=== PATIENT | male | born 1955 | race Caucasian/White ===

== ENCOUNTER → 2017-01-19 | Outpatient (CLI) | payer MEDICARE ==
[2017-01-19 08:19] LABS: Blood Urea Nitrogen 23 mg/dL (9-20); Non-African American GFR(MDRD) >60 (>60 ml/min/1.73 sqM)
--- NOTE | 2017-01-19 09:28 | CT ---
EXAMINATION TYPE: CT angio neck DATE OF EXAM: 01/19/2017 HISTORY: Occlusion and Stenosis of Carotid Artery COMPARISON: NONE CT DLP: 341.3 mGycm. Automated Exposure Control for Dose Reduction was Utilized. TECHNIQUE: CTA scan of the neck is performed with IV Contrast, patient injected with 65 mL of Omnipa que 350, axial images are obtained, coronal and sagittal reformatted images are reviewed. Three-D rec onstructed images are created on an independent workstation and reviewed. FINDINGS: There are emphysematous changes within the lungs. There is some shotty aortopulmonary window adenopathy. Visualized intracranial structures are unremarkable. Visualized portions of the paranasal sinuses and mastoids are clear. There is straightening of the normal cervical lordosis. Vertebral body height and alignment are maint ained. Atlantoaxial relationships are normal. There is disc space loss and hypertrophic spondylosis at C4-5 and C5-6. The thyroid gland enhances homogeneously. There is some shotty cervical adenopathy. The major salivar y glands are normal. The parapharyngeal, oropharyngeal and laryngeal soft tissues are normal. There is moderate atheromatous calcification of the left carotid bulb. There is no significant calcif ication on the right. There is approximately 55% by diameter stenosis of the proximal right ICA. Ther e is approximately a 75% by diameter stenosis involving the proximal left ICA. IMPRESSION: 1. 75% BY DIAMETER STENOSIS OF THE PROXIMAL LEFT ICA. 2. 55% BY DIAMETER STENOSIS OF THE PROXIMAL RIGHT ICA. 3. EMPHYSEMATOUS CHANGE WITHIN THE LUNGS. 4. DEGENERATIVE CHANGE WITHIN THE CERVICAL SPINE.
== END | disposition home or self-care (01) ==
LOC: RADCTMAIN 07:47
PROVIDERS: ATTEND Thoracic Surgery (Cardiothoracic Vascular Surgery)
DX: I65.23 Occlusion and stenosis of bilateral carotid arteries (principal); M47.812 Spondylosis without myelopathy or radiculopathy, cervical region
CPT/HCPCS: 82565; 84520; 70498; 36415; Q9967

== ENCOUNTER → 2018-11-14 | Outpatient (CLI) | payer MEDICARE ==
--- NOTE | 2018-11-14 10:00 | CT ---
EXAMINATION TYPE: CT chest wo con DATE OF EXAM: 11/14/2018 COMPARISON: NONE HISTORY: Shortness of breath CT DLP: 426 mGycm. Automated Exposure Control for Dose Reduction was Utilized. TECHNIQUE: CT scan of the thorax is performed without IV contrast. FINDINGS: LUNGS: The lungs are grossly clear, there is no concerning parenchymal mass or nodule identified. T here is no pleural effusion or pneumothorax seen. The tracheobronchial tree is patent. MEDIASTINUM: Lack of IV contrast is noted to limit evaluation for mediastinal and especially hilar ad enopathy. There are no definitive greater than 1 cm hilar or mediastinal lymph nodes. No cardiomega ly or pericardial effusion is seen. Some coronary artery calcification is present which is noted china er for underlying coronary artery disease. OTHER: There is moderate calcified plaque in the aortic arch. Bovine type arch is seen which is sarah l variant. IMPRESSION: No significant acute or chronic pulmonary process.
== END | disposition home or self-care (01) ==
LOC: RADCTMAIN 08:17
PROVIDERS: ATTEND Family Medicine
DX: R06.02 Shortness of breath (principal)
CPT/HCPCS: 71250

== ENCOUNTER 2018-12-05 06:48 | Day surgery (SDC) | payer MEDICARE ==
[2018-12-03 12:05] VITALS: BMI 25.1
[~2018-12-05 06:48] MED LIST: LACTATED RINGERS 1,000 ML IV SCH
[2018-12-05 07:23] VITALS: RESP 16; TEMP 96.9
[2018-12-05 07:25] LABS: Glucose,Whole Blood 89 mg/dL (75-99)
[2018-12-05] MEDS ORDERED: fentaNYL (PF) 50 MCG/ML 2 ML AMP ONE (07:33)
[2018-12-05] MEDS ORDERED: PROPOFOL 10 MG/ML 20 ML VIAL IV ONE (07:33)
[2018-12-05] MEDS ORDERED: MIDAZOLAM 2 MG/2 ML VIAL ONE (07:33)
[2018-12-05] MEDS ORDERED: GLYCOPYRROLATE 0.2 MG/ML 2 ML VIAL ONE (07:33)
--- NOTE | 2018-12-05 08:01 | P.PCN ---
Date of Procedure: 12/05/18 Procedure(s) Performed: Brief history: Patient is a pleasant 63-year-old white male, scheduled for an elective upper endoscopy as well as colonoscopy as a part of evaluation of abdominal pain, intermittent nausea vomiting and change in bowel habits for the last few months duration. He also has progressive weight loss of 15 pounds in the last 6 months. Procedure performed: Esophagogastroduodenoscopy with biopsy and snare polypectomy Colonoscopy with snare polypectomy Preoperative diagnosis: Abdominal pain/nausea and vomiting Change in bowel habits and progressive weight loss Anesthesia: MAC Procedure: After informed consent was obtained from the patient was brought into the endoscopy unit and IV sedation was administered by anesthesia under continuous monitoring. Initially upper endoscopy was done. The Olympus GF 160 video endoscope was inserted inserted into the mouth and esophagus intubated without any difficulty and was gradually advanced into the stomach and duodenum and carefully examined. The bulb and second part of the duodenum appeared normal. There was a 5 mm polyp in the second part of the duodenum that was removed by snare polypectomy. Also biopsies were done from the duodenum to rule out celiac disease. The scope was then withdrawn into the stomach adequately insufflated with air and upon careful examination the antrum a had mild gastritis and biopsies were done from this area. The body, cardia and fundus appeared normal. The scope was then withdrawn into the esophagus. The GE junction was located at 40 cm to the incisors. It appeared regular with no erythema erosions or ulcerations. Rest of the esophagus appeared normal. Patient tolerated the procedure well. At this time the patient continued to remain sedation. Initial digital rectal examination was normal. Olympus CF 160 video colonoscope was then inserted into the rectum and gradually advanced to the cecum without any difficulty. Careful examination was performed as the scope was gradually being withdrawn. The prep was excellent. The cecum, ascending colon, transverse colon, appeared normal. In the proximal descending colon there was a 1 cm broad-based polyp that was removed by snare polypectomy. In the distal sigmoid colon there was another 5 and admitted polyp that was removed by snare polypectomy. Rest of the descending colon, sigmoid colon and rectum appeared normal. Retroflexion was performed in the rectum and no lesions were noted. Patient tolerated the procedure well. Impression: 1. Upper endoscopy revealed 5-6 mm duodenal polyp, mild antral gastritis. 2. Colonoscopy revealed 1 cm proximal descending colon polyp and 5 mm distal sigmoid colon polyp, status post polypectomy. Recommendations: Findings of this examination were discussed with the patient as well as his family. He was advised to follow with the biopsy results. If the biopsy reveals adenoma, he can have a repeat colonoscopy in 3 years.
[2018-12-05 08:34] VITALS: PULSE 69
[2018-12-05 08:53] VITALS: BP 104/70
== END 2018-12-05 09:16 | disposition home or self-care (01) ==
LOC: ORWHC2ENDO 06:48
PROVIDERS: ATTEND Internal Medicine Gastroenterology
DX: K29.50 Unspecified chronic gastritis without bleeding (principal); D12.4 Benign neoplasm of descending colon; D12.5 Benign neoplasm of sigmoid colon; K31.7 Polyp of stomach and duodenum; I10 Essential (primary) hypertension; E78.5 Hyperlipidemia, unspecified; E11.9 Type 2 diabetes mellitus without complications; F17.200 Nicotine dependence, unspecified, uncomplicated; F39 Unspecified mood [affective] disorder; Z79.84 Long term (current) use of oral hypoglycemic drugs; Z79.899 Other long term (current) drug therapy; Z79.82 Long term (current) use of aspirin
CPT/HCPCS: 88305; 45385; 43239; 43251; J2250; J3010; J2704

== ENCOUNTER 2019-08-15 08:53 | Emergency (ER) | payer MEDICARE ==
[2019-08-15 09:03] VITALS: RESP 18
[2019-08-15] MEDS ORDERED: KETOROLAC 60 MG/2 ML VIAL IM STA (09:40)
[2019-08-15] MEDS ORDERED: ORPHENADRINE 30 MG/ML 2 ML VIAL IM STA (09:40)
[2019-08-15] MEDS ORDERED: HYDROcodone/APAP 7.5-325MG 1 EACH TAB PO ONE (09:40)
--- NOTE | 2019-08-15 09:47 | ED ---
Back Pain HPI - General Chief Complaint: Back Pain/Injury Stated Complaint: BACK PAIN Time Seen by Provider: 08/15/19 09:24 Source: patient, RN notes reviewed Limitations: no limitations - History of Present Illness Initial Comments: This a 63-year-old male presents emergency Department chief complaint low back pain. Patient states this started 5 days ago after clearing snow off of his vehicle. Patient states that he was twisting and pushing snow. Patient states that he felt a pull in his back and he's had persistent pain. He denies any bowel, bladder incontinence or retention. Denies any saddle anesthesias or lower extremity paresthesias has no current abdominal pain. He has tried some [id number] medications with no relief. Patient states she's had a history of back pain similar to this. Patient is able to family but does admit that pain is worse with movement better at rest. - Related Data Home Medications Medication Instructions Recorded Confirmed Atorvastatin [Lipitor] 10 mg PO HS 02/03/14 12/05/18 Divalproex [Depakote] 1,500 mg PO 02/03/14 12/05/18 FLUoxetine HCL [PROzac] 40 mg PO QAM 02/03/14 12/05/18 LORazepam [Ativan] 2 mg PO HS 02/03/14 12/05/18 Lisinopril [Prinivil] 10 mg PO QAM 02/03/14 12/05/18 Omeprazole [PriLOSEC] 20 mg PO 1700 02/03/14 12/05/18 Primidone [Mysoline] 50 mg PO HS 02/03/14 12/05/18 QUEtiapine [SEROquel] 400 mg PO HS 02/03/14 12/05/18 Aspirin 81 mg PO DAILY 12/03/18 12/05/18 Baclofen [Lioresal] 20 mg PO TID PRN 12/03/18 12/05/18 Multivit-Min/FA/Lycopen/Lutein 1 each PO DAILY 12/03/18 12/05/18 [Centrum Silver Men Tablet] QUEtiapine [SEROquel] 150 mg PO QAM 12/03/18 12/05/18 Temazepam [Restoril] 30 mg PO HS 12/03/18 12/05/18 metFORMIN HCL [Glucophage] 500 mg PO 1700 12/03/18 12/05/18 traZODone HCL 300 mg PO HS 12/03/18 12/05/18 Previous Rx's Medication Instructions Recorded Cyclobenzaprine [Flexeril] 10 mg PO TID PRN #15 tab 08/15/19 Hydrocodone/Acetaminophen [[place] 1 tab PO Q6HR PRN #12 tab 08/15/19 5-325] Ibuprofen [Motrin] 600 mg PO Q8HR PRN #30 tab 08/15/19 Allergies Allergy/AdvReac Type Severity Reaction Status Date / Time No Known Allergies Allergy Verified 08/15/19 09:00 Review of Systems ROS Statement: Those systems with pertinent positive or pertinent negative responses have been documented in the HPI. ROS Other: All systems not noted in ROS Statement are negative. Past Medical History Past Medical History: CVA/TIA, Diabetes Mellitus, Hyperlipidemia, Hypertension Additional Past Medical History / Comment(s): unexpected wt loss,hx TIA-2007: DJD, chronic back pain History of Any Multi-Drug Resistant Organisms: None Reported Additional Past Surgical History / Comment(s): surgery for undescended testicle Past Anesthesia/Blood Transfusion Reactions: No Reported Reaction Additional Past Anesthesia/Blood Transfusion Reaction / Comment(s): no hx blood transfusion Past Psychological History: Anxiety, Bipolar, Depression Smoking Status: Current some day smoker - Past Family History Mother Family Medical History: No Reported History General Exam Limitations: no limitations General appearance: alert, in no apparent distress Head exam: Present: atraumatic, normocephalic, normal inspection Neck exam: Present: normal inspection, full ROM. Absent: tenderness, meningismus, lymphadenopathy Respiratory exam: Present: normal lung sounds bilaterally. Absent: respiratory distress, wheezes, rales, rhonchi, stridor Cardiovascular Exam: Present: regular rate, normal rhythm, normal heart sounds. Absent: systolic murmur, diastolic murmur, rubs, gallop, clicks GI/Abdominal exam: Present: soft, normal bowel sounds. Absent: distended, tenderness, guarding, rebound, rigid Extremities exam: Present: other (Lower extremities neurovascular intact equal color equal warmth full strength pain with range of motion.) Back exam: Present: full ROM, tenderness (Severe lumbar tenderness), muscle spasm, paraspinal tenderness, vertebral tenderness. Absent: CVA tenderness (R), CVA tenderness (L) Neurological exam: Present: alert, oriented X3, CN II-XII intact, reflexes normal. Absent: motor sensory deficit Skin exam: Present: warm, dry, intact, normal color. Absent: rash Course Vital Signs 08/15/19 09:00 Temperature 98.1 F Pulse Rate 97 Respiratory 18 Rate Blood Pressure 91/64 O2 Sat by Pulse 95 Oximetry Medical Decision Making - Medical Decision Making X-ray shows degenerative changes, no acute osseus lesions. Patient's pain is improved after pain medication emergency from it. Patient be discharged in stable condition return parameters were discussed. Disposition Clinical Impression: Strain of lumbar region Disposition: HOME SELF-CARE Condition: Stable Instructions (If sedation given, give patient instructions): Acute Low Back Pain (ED) Additional Instructions: Please return to the Emergency Department if symptoms worsen or any other concerns. Prescriptions: Cyclobenzaprine [Flexeril] 10 mg PO TID PRN #15 tab PRN Reason: Muscle Spasm Ibuprofen [Motrin] 600 mg PO Q8HR PRN #30 tab PRN Reason: Pain Hydrocodone/Acetaminophen [[place] 5-325] 1 tab PO Q6HR PRN #12 tab PRN Reason: Pain Is patient prescribed a controlled substance at d/c from ED?: Yes When asked, does pt state using other controlled substances?: No If prescribed controlled substance>3 days was MAPS reviewed?: Prescribed <3 Days If opioid is for acute pain is fill amount 7 days or less?: Yes If Rx opioid, was Start Talking consent form obtained?: Yes Referrals: Hang Brannon MD [Primary Care Provider] - 1-2 days Time of Disposition: 10:56
--- NOTE | 2019-08-15 10:49 | XR ---
EXAMINATION TYPE: XR lumbosacral spine min 4V DATE OF EXAM: 08/15/2019 CLINICAL HISTORY: Low back pain. TECHNIQUE: Frontal, lateral, and oblique images of the lumbar spine are obtained. COMPARISON: Prior MRI April 13, 2013. FINDINGS: There are 5 lumbar type vertebral bodies identified. The lumbar spine redemonstrated sati sfactory alignment without evidence of acute fracture or dislocation. Vertebral body heights and disk space heights are within normal limits. The oblique images appear within normal limits. Mild multi level anterior and lateral spurring. The overlying soft tissue appears unremarkable. IMPRESSION: As above.
[2019-08-15 11:23] VITALS: BP 134/67; PULSE 83; TEMP 98
== END 2019-08-15 11:20 | disposition home or self-care (01) ==
LOC: EC 08:53
DX: S39.012A Strain of muscle, fascia and tendon of lower back, initial encounter (principal); E11.9 Type 2 diabetes mellitus without complications; E78.5 Hyperlipidemia, unspecified; I10 Essential (primary) hypertension; F41.9 Anxiety disorder, unspecified; F31.9 Bipolar disorder, unspecified; F17.200 Nicotine dependence, unspecified, uncomplicated; Z79.899 Other long term (current) drug therapy; Z79.82 Long term (current) use of aspirin; Z79.84 Long term (current) use of oral hypoglycemic drugs; Z86.73 Personal history of transient ischemic attack (TIA), and cerebral infarction without residual deficits; X58.XXXA Exposure to other specified factors, initial encounter
CPT/HCPCS: 72110; 99283; 96372 ×2; J2360; J1885

== ENCOUNTER 2022-05-15 09:59 | Emergency (ER) | payer MEDICARE ==
[2022-05-15 10:07] VITALS: TEMP 97.9
[2022-05-15] MEDS ORDERED: ORPHENADRINE 30 MG/ML 2 ML VIAL IM STA (10:35)
[2022-05-15] MEDS ORDERED: KETOROLAC 15 MG/ML 1 ML VIAL IM STA (10:35)
--- NOTE | 2022-05-15 11:03 | XR ---
EXAMINATION TYPE: XR lumbosacral spine min 4V DATE OF EXAM: 05/15/2022 COMPARISON: 08/15/2019 HISTORY: Pain TECHNIQUE: 5 view lumbar spine FINDINGS: There are 5 lumbar-type vertebral bodies. Pedicles are intact. Disc heights are preserved. Vertebral body heights are preserved. Minimal spondylosis is present. Mild facet changes are present in the lower lumbar spine. IMPRESSION: 1. Mild facet changes lower lumbar spine. 2. No acute osseous abnormality
--- NOTE | 2022-05-15 11:42 | ED ---
Back Pain HPI - General Chief Complaint: Back Pain/Injury Stated Complaint: Back Pain Time Seen by Provider: 05/15/22 10:07 Source: patient, RN notes reviewed Limitations: no limitations - History of Present Illness Initial Comments: 66-year-old male presents emergency Department chief complaint of low back pain. Patient states has been bothersome for last 4 days. Patient states that he has degenerative disc disease states he was his back pain. Patient states that he said new x-rays. He denies any bowel, bladder incontinence or retention of saddle anesthesias no dysuria no hematuria no fevers or chills no flank pain. Patient's pain is under at rest worse with movement - Related Data Home Medications Medication Instructions Recorded Confirmed Atorvastatin [Lipitor] 10 mg PO HS 02/03/14 12/05/18 Divalproex [Depakote] 1,500 mg PO HS 02/03/14 12/05/18 FLUoxetine HCL [PROzac] 40 mg PO QAM 02/03/14 12/05/18 LORazepam [Ativan] 2 mg PO HS 02/03/14 12/05/18 Omeprazole [PriLOSEC] 20 mg PO 1700 02/03/14 12/05/18 Primidone [Mysoline] 50 mg PO HS 02/03/14 12/05/18 QUEtiapine [SEROquel] 400 mg PO HS 02/03/14 12/05/18 lisinopriL [Prinivil] 10 mg PO QAM 02/03/14 12/05/18 Aspirin 81 mg PO DAILY 12/03/18 12/05/18 Baclofen [Lioresal] 20 mg PO TID PRN 12/03/18 12/05/18 Multivit-Min/FA/Lycopen/Lutein 1 each PO DAILY 12/03/18 12/05/18 [Centrum Silver Men Tablet] QUEtiapine [SEROquel] 150 mg PO QAM 12/03/18 12/05/18 Temazepam [Restoril] 30 mg PO HS 12/03/18 12/05/18 metFORMIN HCL [Glucophage] 500 mg PO 1700 12/03/18 12/05/18 traZODone HCL 300 mg PO HS 12/03/18 12/05/18 Previous Rx's Medication Instructions Recorded Cyclobenzaprine [Flexeril] 10 mg PO TID PRN #15 tab 08/15/19 Hydrocodone/Acetaminophen [[place] 1 tab PO Q6HR PRN #12 tab 08/15/19 5-325] Ibuprofen [Motrin] 600 mg PO Q8HR PRN #30 tab 08/15/19 Cyclobenzaprine [Flexeril] 10 mg PO TID PRN #15 tab 05/15/22 Ibuprofen [Motrin] 600 mg PO Q8HR PRN #20 tab 05/15/22 Allergies Allergy/AdvReac Type Severity Reaction Status Date / Time No Known Allergies Allergy Verified 05/15/22 10:06 Review of Systems ROS Statement: Those systems with pertinent positive or pertinent negative responses have been documented in the HPI. ROS Other: All systems not noted in ROS Statement are negative. Past Medical History Past Medical History: CVA/TIA, Diabetes Mellitus, Hyperlipidemia, Hypertension Additional Past Medical History / Comment(s): unexpected wt loss,hx TIA-2007: DJD, chronic back pain History of Any Multi-Drug Resistant Organisms: None Reported Additional Past Surgical History / Comment(s): surgery for undescended testicle Past Anesthesia/Blood Transfusion Reactions: No Reported Reaction Additional Past Anesthesia/Blood Transfusion Reaction / Comment(s): no hx blood transfusion Past Psychological History: Anxiety, Bipolar, Depression Smoking Status: Current every day smoker Past Alcohol Use History: Occasional Past Drug Use History: Marijuana - Past Family History Mother Family Medical History: No Reported History General Exam Limitations: no limitations General appearance: alert, in no apparent distress Neck exam: Present: normal inspection, full ROM. Absent: tenderness, meningismus, lymphadenopathy Respiratory exam: Present: normal lung sounds bilaterally. Absent: respiratory distress, wheezes, rales, rhonchi, stridor Cardiovascular Exam: Present: regular rate, normal rhythm, normal heart sounds. Absent: systolic murmur, diastolic murmur, rubs, gallop, clicks GI/Abdominal exam: Present: soft, normal bowel sounds. Absent: distended, tenderness, guarding, rebound, rigid Back exam: Present: normal inspection, full ROM (With discomfort), tenderness, paraspinal tenderness, other (Lower extremity strength equal bilaterally, equal clinical warmth). Absent: CVA tenderness (R), CVA tenderness (L), vertebral tenderness Neurological exam: Present: alert, oriented X3, CN II-XII intact, reflexes normal. Absent: motor sensory deficit Course Vital Signs 05/15/22 10:01 Temperature 97.9 F Pulse Rate 106 H Respiratory 18 Rate Blood Pressure 100/67 O2 Sat by Pulse 96 Oximetry Medical Decision Making - Medical Decision Making X-ray shows degenerative changes, no significant findings otherwise patient does have strained his lumbar back, is alert like symptoms patient discharge she did have improvement after Toradol, Norflex. Disposition Clinical Impression: Strain of lumbar region Disposition: HOME SELF-CARE Condition: Stable Instructions (If sedation given, give patient instructions): Acute Low Back Pain (ED) Additional Instructions: Please return to the Emergency Department if symptoms worsen or any other concerns. Prescriptions: Cyclobenzaprine [Flexeril] 10 mg PO TID PRN #15 tab PRN Reason: Muscle Spasm Ibuprofen [Motrin] 600 mg PO Q8HR PRN #20 tab PRN Reason: Pain Is patient prescribed a controlled substance at d/c from ED?: No Referrals: John Leyva DO [Primary Care Provider] - 1-2 days
[2022-05-15] MEDS ORDERED: ACET/COD 300 MG/30 MG STARTER PACK 6 TAB BTL PO STA (12:05)
[2022-05-15 12:50] VITALS: BP 122/68; PULSE 71; RESP 16
== END 2022-05-15 12:50 | disposition home or self-care (01) ==
LOC: EC 09:59
DX: S39.012A Strain of muscle, fascia and tendon of lower back, initial encounter (principal); E11.9 Type 2 diabetes mellitus without complications; E78.5 Hyperlipidemia, unspecified; I10 Essential (primary) hypertension; F17.200 Nicotine dependence, unspecified, uncomplicated; F12.90 Cannabis use, unspecified, uncomplicated; Z79.83 Long term (current) use of bisphosphonates; Z79.82 Long term (current) use of aspirin; Z79.899 Other long term (current) drug therapy; X58.XXXA Exposure to other specified factors, initial encounter
CPT/HCPCS: 72110; 99283; 96372 ×2; J2360; J1885

== ENCOUNTER 2022-12-26 12:14 | Day surgery (SDC) | payer MEDICARE, OTHER ==
[2022-12-21 15:23] VITALS: BMI 22.9
[2022-12-26 12:49] VITALS: TEMP 97
[2022-12-26 13:02] LABS: Glucose,Whole Blood 123 mg/dL (70-110)
[2022-12-26] MEDS ORDERED: PROPOFOL 10 MG/ML 20 ML VIAL IV ONE (13:33)
--- NOTE | 2022-12-26 13:37 | P.GSHP ---
History of Present Illness H&P Date: 12/26/22 Chief Complaint: Positive colon guard test This a 67-year-old male who presents today for colonoscopy. Patient has a positive colon guard test. Patient had a previous colonoscopy with polyp removal in 2019. Past Medical History Past Medical History: CVA/TIA, Diabetes Mellitus, Hyperlipidemia, Hypertension Additional Past Medical History / Comment(s): unexpected wt loss,hx TIA-2008: DJD, chronic back pain Bipolar 1 History of Any Multi-Drug Resistant Organisms: None Reported Additional Past Surgical History / Comment(s): surgery for undescended testicle Past Anesthesia/Blood Transfusion Reactions: No Reported Reaction Additional Past Anesthesia/Blood Transfusion Reaction / Comment(s): no hx blood transfusion Smoking Status: Current every day smoker - Past Family History Mother Family Medical History: No Reported History Medications and Allergies Home Medications Medication Instructions Recorded Confirmed Type Atorvastatin [Lipitor] 10 mg PO 02/03/14 12/26/22 History Divalproex [Depakote] 1,500 mg PO 02/03/14 12/26/22 History Omeprazole [PriLOSEC] 20 mg PO 1700 02/03/14 12/26/22 History Primidone [Mysoline] 50 mg PO 02/03/14 12/26/22 History QUEtiapine [SEROquel] 400 mg PO 02/03/14 12/26/22 History lisinopriL [Prinivil] 10 mg PO [facility] 02/03/14 12/26/22 History Aspirin 81 mg PO DAILY 12/03/18 12/26/22 History QUEtiapine [SEROquel] 150 mg PO [facility] 12/03/18 12/26/22 History Temazepam [Restoril] 30 mg PO 12/03/18 12/26/22 History metFORMIN HCL [Glucophage] 500 mg PO 1700 12/03/18 12/26/22 History traZODone HCL 300 mg PO 12/03/18 12/26/22 History Cyclobenzaprine [Flexeril] 10 mg PO TID PRN #15 tab 05/15/22 12/26/22 Rx Ibuprofen [Motrin] 800 mg PO Q8HR PRN 12/21/22 12/26/22 History Allergies Allergy/AdvReac Type Severity Reaction Status Date / Time No Known Allergies Allergy Verified 12/26/22 12:40 Surgical - Exam Vital Signs Temp Pulse Resp BP Pulse Ox 97.0 F L 102 H 18 99/63 96 12/26/22 12:46 12/26/22 12:46 12/26/22 12:46 12/26/22 12:46 12/26/22 12:46 - General well developed, well nourished, no distress - Eyes PERRL - ENT normal pinna - Neck no masses - Respiratory normal expansion - Cardiovascular Rhythm: regular - Abdomen Abdomen: soft, non tender Results - Labs Abnormal Lab Results - Last 24 Hours (Table) 12/26/22 Range/Units 12:59 POC Glucose (mg/dL) 123 H (70-110) mg/dL Assessment and Plan Assessment: We'll perform colonoscopy
--- NOTE | 2022-12-26 13:50 | P.OP ---
Date of Procedure: 12/26/22 Preoperative Diagnosis: Positive colon guard Postoperative Diagnosis: Normal colonoscopy Procedure(s) Performed: Colonoscopy Anesthesia: MAC Surgeon: Yair Mckeon Pathology: none sent Condition: stable Disposition: PACU Description of Procedure: The patient's placed on the endoscopy table in the lateral position. He received IV sedation. Digital rectal exam performed. This revealed no abnormalities. The prostate was symmetric without nodules. The flexible colonoscope was then placed patient anus and asked throughout the entire colon. The ileocecal valve was visualized. The cecum, ascending and transverse colon appeared normal. The descending and sigmoid colon appeared normal. Scope was then brought back the rectum and this appeared normal. The scope was withdrawn for patient.
[2022-12-26 13:55] VITALS: RESP 16
[2022-12-26 14:09] VITALS: BP 122/81; PULSE 76
== END 2022-12-26 14:30 | disposition home or self-care (01) ==
LOC: ORWHC2ENDO 12:14
PROVIDERS: ATTEND Surgery
DX: R19.5 Other fecal abnormalities (principal); I10 Essential (primary) hypertension; E11.9 Type 2 diabetes mellitus without complications; E78.5 Hyperlipidemia, unspecified; G89.29 Other chronic pain; F17.200 Nicotine dependence, unspecified, uncomplicated; Z79.82 Long term (current) use of aspirin; Z79.899 Other long term (current) drug therapy; Z86.73 Personal history of transient ischemic attack (TIA), and cerebral infarction without residual deficits
CPT/HCPCS: 45378; J2704

== ENCOUNTER → 2023-06-01 | Outpatient (CLI) | payer MEDICARE, OTHER ==
[2023-06-01 16:28] LABS: ALT 15 U/L (10-49); AST 12 U/L (14-35); Albumin 4.6 g/dL (3.8-4.9); Alkaline Phosphatase 45 U/L (41-126); BUN/Creat Ratio 13.22 Ratio (12.00-20.00); Blood Urea Nitrogen 11.9 mg/dL (9.0-27.0); Calcium 9.9 mg/dL (8.7-10.3); Carbon Dioxide 26.1 mmol/L (21.6-31.8); Chloride 101 mmol/L (96-109); Globulin 2.3 g/dL (1.6-3.3); Glucose 125 mg/dL (70-110); Potassium 4.9 mmol/L (3.5-5.5); Sodium 139 mmol/L (135-145); Total Bilirubin <0.2 mg/dL (0.3-1.2); Total Protein 6.9 g/dL (6.2-8.2)
[2023-06-01 16:35] LABS: Basophils # (A) 0.01 X 10*3/uL (0.00-0.10); Basophils % (A) 0.2 %; Eosinophils # (A) 0.05 X 10*3/uL (0.04-0.35); HCT 44.8 % (39.6-50.0); HGB 15.6 g/dL (13.0-17.0); Lymphocytes # (A) 1.97 X 10*3/uL (0.90-5.00); Lymphocytes % (A) 39.5 %; MCH 34.3 pg (27.0-32.0); MCHC 34.8 g/dL (32.0-37.0); MCV 98.5 FL (80.0-97.0); Mean Platelet Volume 9.5 FL (9.5-12.2); Monocytes # (A) 0.46 X 10*3/uL (0.20-1.00); Monocytes % (A) 9.2 %; NRBC Per 100 WBC 0 X 10*3/uL (0.00-0.01); Neutrophils # (A) 2.47 X 10*3/uL (1.80-7.70); Neutrophils % (A) 49.5 %; Platelet Count 260 X 10*3/uL (140-440); RBC 4.55 X 10*6/uL (4.40-5.60); RDW 12.9 % (11.5-14.5); WBC 4.99 X 10*3/uL (4.50-10.00)
[2023-06-01 20:00] LABS: Valproic Acid (Depakene) 76.2 UG/ML (50.0-100.0)
== END | disposition home or self-care (01) ==
LOC: LABWHC1 11:47
PROVIDERS: ATTEND Family Medicine
DX: I10 Essential (primary) hypertension (principal); J44.9 Chronic obstructive pulmonary disease, unspecified; E78.5 Hyperlipidemia, unspecified; R42 Dizziness and giddiness; R06.02 Shortness of breath
CPT/HCPCS: 36415; 80053; 80164; 83036; 85025

== ENCOUNTER → 2023-10-03 | Outpatient (CLI) | payer MEDICARE ==
--- NOTE | 2023-10-03 10:21 | US ---
EXAMINATION TYPE: US carotid duplex BILAT DATE OF EXAM: 10/03/2023 COMPARISON: NONE CLINICAL INDICATION: Male, 67 years old with history of I10 HTN E78.5 HYPERLIPIDEMIA; HTN; DM; ?Hx le ft carotid disease; Smoker; Memory changes from mini strokes TECHNIQUE: Carotid duplex ultrasound examination. Indirect Doppler criteria was utilized. FINDINGS: EXAM MEASUREMENTS: RIGHT: Peak Systolic Velocity (PSV) cm/sec ----- Right CCA: 86 ----- Right ICA: 319 ----- Right ECA: 103 ICA/CCA ratio: 3.7 RIGHT: End Diastole cm/sec ----- Right CCA: 30 ----- Right ICA: 120 ----- Right ECA: 19 LEFT: Peak Systolic Velocity (PSV) cm/sec ----- Left CCA: 129 ----- Left ICA: 504 ----- Left ECA: 148 ICA/CCA ratio: 3.9 LEFT: End Diastole cm/sec ----- Left CCA: 41 ----- Left ICA: 173 ----- Left ECA: 25 VERTEBRALS (direction of flow): Right Vertebral: Antegrade Left Vertebral: Antegrade Rhythm: Normal [employer] NOTES: Extensive plaque and intimal thickening bilaterally causing elevated velocities wi thin the Right ICA, and Left CCA, ICA, and ECA. IMPRESSION: Internal carotid arteries with high velocities suggesting high-grade stenosis, greater than 70% bilat erally and left greater than right. Criteria for Assigning % of Stenosis / Diameter reduction (Estimation based on the indirect measurements of the internal carotid artery velocities (ICA PSV). 1. Normal (no stenosis)=ICA PSV < 125 cm/s: ratio < 2.0: ICA EDV<40 cm/s. 2. Less than 50% stenosis=ICA PSV < 125 cm/s: ratio < 2.0: ICA EDV<40 cm/s. 3. 50 to 69% stenosis=ICA PSV of 125 to 230 cm/s: ration 2.0 ? 4.0: ICA EDV 40-100 cm/s. 4. Greater than 70% stenosis to near occlusion= ICA PSV > 230 cm/s: ratio > 4.0: ICA EDV > 100 cm/s. 5. Near occlusion= ICA PSV velocities may be low or undetectable: variable ratio and ICA EDV. 6. Total occlusion=unable to detect flow.
== END | disposition home or self-care (01) ==
LOC: RADUSWWP 08:46
PROVIDERS: ATTEND Family Medicine
DX: E78.5 Hyperlipidemia, unspecified (principal); I10 Essential (primary) hypertension
CPT/HCPCS: 93880

== ENCOUNTER → 2023-10-12 | Outpatient (CLI) | payer MEDICARE ==
[~2023-10-12] MED LIST changes: +DOBUTamine DRIP for NUC MED 500 MG in DEXTROSE/WATER 1 250ML.BAG IV PRN; +DOBUTamine DRIP for NUC MED 500 MG/250 ML BAG IV ONE; -LACTATED RINGERS 1,000 ML IV SCH
--- NOTE | 2023-10-12 11:50 | CA ---
Dobutamine Stress Echocardiogram Report Venkatesh Kramer Age: 67 Gender: M : 1955 Exam Date: 10/12/2023 09:40 Exam Location: [place] [facility] Ordering Physician: John Leyva DO Referring Physician: Marga Cruz [facility] Events Manager: BEATRIZ ROWELL Technologist: Ht (in): 70 Wt (lb): 180 Procedure CPT: Indication: I10 HTN ICD-9 Codes: Rhythm: Patient History: Cardiac Medications: SEE CHART Medications in past 24 hours: Contrast: N/A Total Dose (mL): NA Stress Results Protocol: Dobutamine Peak Dose (???g/kg/min): 40 Duration (min:sec): Atropine:(mg) Target HR: 132 Double Product: [id number] Resting HR: 77 Resting BP: 94 / 50 Peak HR: 143 Peak BP: 122 / 54 Max Predicted HR: 155 92 % Max Predicted HR Stress Summary: Patient received dobutamine infusion as per the protocol. Patient was able to achieve 92% of age-predicted maximum heart rate. Patient tolerated the dobutamine infusion well without any chest pain chest pressure or shortness of breath symptoms. BP Response: Reason for Termination: Exceeded target heart rate (85% max predicted) Cardiac Symptoms: NO SYMPTOMS ECG Analysis Resting EKG: Normal sinus rhythm, normal axis Stress EKG: No significant ST or T wave changes that are diagnostic for ischemia by ST segment analysis Arrhythmia: No ectopic beats or any sustained arrhythmias Echo Analysis Base Echo Analysis: Normal global and segmental systolic function. No resting regional wall motion normality Low Echo Anaylsis: Normal augmentation of global and segmental systolic function. No stress-induced regional wall motion normality Peak Echo Analysis: Normal augmentation of global and segmental systolic function. No stress-induced regional wall motion normality Recovery Echo: No regional wall motion abnormality at recovery MEASUREMENTS (Male/Female) Normal Values CONCLUSIONS Nonischemic ECG and echocardiographic response to dobutamine infusion Normal hemodynamic and clinical response to dobutamine infusion Overall normal dobutamine stress echo study Dr Tyler Vora (Electronically Signed) Final Date: 12 October 2023 11:50
== END | disposition home or self-care (01) ==
LOC: RADNMMAIN 09:08
PROVIDERS: ATTEND Family Medicine
DX: I10 Essential (primary) hypertension (principal); E78.5 Hyperlipidemia, unspecified
CPT/HCPCS: 93351

== ENCOUNTER → 2023-12-26 | Outpatient (CLI) | payer MEDICARE ==
[2023-12-26 12:34] LABS: African American GFR (CKD) >90 (>60 ml/min/1.73 sqM); Blood Urea Nitrogen 15 mg/dL (9-20); Non-African American GFR(CKD) >90 (>60 ml/min/1.73 sqM)
--- NOTE | 2024-01-01 16:02 | CT ---
EXAMINATION TYPE: CT angio neck DATE OF EXAM: 12/26/2023 4:04 PM CLINICAL INDICATION:Male, 68 years old with history of I65.23 carotid stenosis; carotid stenosis, hx of tia COMPARISON: 01/19/2017, 10/03/2023. TECHNIQUE: Axially acquired helical CT Angiogram of the Neck was obtained with and without contrast. Axial images are supplemented with coronal and sagittal MIP reconstructions. 3D reconstructions were also performed and were post-processed at an independent workstation. Estimated carotid stenosis was calculated using the NASCET criteria. CT DLP: 416.4 mGycm, Automated exposure control for dose reduction was used. Contrast used:65 mL of Isovue 370 with IV Contrast, Oral contrast used: , None. FINDINGS: CTA NECK: Right Carotid System: The common carotid artery and external carotid artery are patent. The carotid bifurcation demonstrate s no evidence of hemodynamically significant stenosis. The remaining portions of the internal carotid artery demonstrate normal size without significant narrowing. Left Carotid System: The common carotid and external carotid arteries are patent. There is approximately up to 90 % stenos is at the carotid bifurcation secondary to calcified/noncalcified plaquing. The rest of the internal carotid artery is patent. Vertebral arteries are patent without evidence hemodynamically significant stenosis. There is a 2-vessel aortic arch. There is moderate atherosclerotic plaque near the left subclavian ar raymond origin. The origins of the great vessels are patent. No evidence of hemodynamically significant stenosis. IMPRESSION: 1. Calcified plaque at the left carotid bifurcation/proximal internal carotid artery with at least 9 0% stenosis to near occlusion evaluation somewhat limited due to dense calcification. Findings simila r to findings on carotid duplex 10/03/2023. 2. No evidence of dissection of the cervical internal carotid arteries or vertebral arteries or sign ificant right carotid bifurcation stenosis.
== END | disposition home or self-care (01) ==
LOC: RADCTMAIN 11:50
PROVIDERS: ATTEND Surgery
DX: I65.23 Occlusion and stenosis of bilateral carotid arteries (principal)
CPT/HCPCS: 82565; 84520; 70498; 36415; Q9967

== ENCOUNTER 2024-02-09 05:55 | Inpatient (IN) | payer MEDICARE ==
[~2024-02-09 05:55] MED LIST changes: -DOBUTamine DRIP for NUC MED 500 MG in DEXTROSE/WATER 1 250ML.BAG IV PRN; -DOBUTamine DRIP for NUC MED 500 MG/250 ML BAG IV ONE; +LIDOCAINE 1% (10MG/ML) FOR IV START INTRADERMA PRN
[2024-02-09] MEDS: IV FLUID CONTINUATION 1,000 ML IV ONE ×3 (06:10→06:43)
[2024-02-09 06:34] LABS: Glucose,Whole Blood 137 mg/dL (70-110)
[2024-02-09] MEDS: fentaNYL (PF) 50 MCG/ML 2 ML AMP IVP PRN (06:51)
[2024-02-09] MEDS: MIDAZOLAM 2 MG/2 ML VIAL IV PRN (06:52)
[2024-02-09] MEDS: DEXAMETHASONE SOD PHOSPHATE 4 MG/ML 1 ML VIAL IV ONE (06:53)
[2024-02-09] MEDS: ONDANSETRON 4 MG/2 ML VIAL IVP ONE (06:53)
[2024-02-09 07:01] LABS: Basophils % (A) 0 %; Eosinophils # (A) 0.1 k/uL (0-0.7); Eosinophils % (A) 2 %; HCT 45.3 % (39.0-53.0); HGB 15.1 gm/dL (13.0-17.5); Lymphocytes # (A) 2.7 k/uL (1.0-4.8); Lymphocytes % (A) 43 %; MCH 33.7 pg (25.0-35.0); MCHC 33.4 g/dL (31.0-37.0); MCV 100.9 fL (80.0-100.0); Mean Platelet Volume 7.5; Monocytes # (A) 0.4 k/uL (0-1.0); Monocytes % (A) 6 %; Neutrophils # (A) 2.8 k/uL (1.3-7.7); Neutrophils % (A) 47 %; Platelet Count 353 k/uL (150-450); RBC 4.49 m/uL (4.30-5.90); RDW 12.6 % (11.5-15.5); WBC 6.1 k/uL (3.8-10.6)
--- NOTE | 2024-02-09 07:13 | P.GSHP ---
History of Present Illness H&P Date: 02/09/24 Chief Complaint: carotid stenosis 68-year-old gentleman with history of carotid stenosis and TIA presents to the hospital for elective left carotid endarterectomy and patch angioplasty. He previously had TIAs affecting his speech as well as right upper extremity which all have resolved but was found to have on CTA of the neck 90% stenosis of the left ICA. He denies any fevers, chills, chest pain or shortness of breath. - Review of Systems All systems: negative (What is mentioned in the HPI or past medical history) Past Medical History Past Medical History: CVA/TIA, Diabetes Mellitus, GERD/Reflux, Hyperlipidemia, Hypertension, Musculoskeletal Disorder, Prostate Disorder Additional Past Medical History / Comment(s): hx 3 TIA's, occasional lightheadedness, takes cialis for BPH, DJD, chronic back pain, type 2 diabetes History of Any Multi-Drug Resistant Organisms: None Reported Additional Past Surgical History / Comment(s): surgery for undescended testicle, colonoscopy Past Anesthesia/Blood Transfusion Reactions: No Reported Reaction Additional Past Anesthesia/Blood Transfusion Reaction / Comment(s): no hx blood transfusion Smoking Status: Current every day smoker - Past Family History Mother Family Medical History: No Reported History Medications and Allergies Home Medications Medication Instructions Recorded Confirmed Type Atorvastatin [Lipitor] 20 mg PO HS 02/03/14 02/09/24 History Divalproex [Depakote] 500 mg PO HS 02/03/14 02/09/24 History Omeprazole [PriLOSEC] 20 mg PO 1700 02/03/14 02/09/24 History QUEtiapine [SEROquel] 400 mg PO HS 02/03/14 02/09/24 History lisinopriL [Prinivil] 10 mg PO QAM 02/03/14 02/09/24 History Aspirin 81 mg PO DAILY 12/03/18 02/09/24 History Temazepam [Restoril] 30 mg PO HS 12/03/18 02/09/24 History traZODone HCL 300 mg PO HS 12/03/18 02/09/24 History Ibuprofen [Motrin] 800 mg PO Q8HR PRN 12/21/22 02/09/24 History Cyclobenzaprine [Flexeril] 10 mg PO BID PRN 02/07/24 02/09/24 History DULoxetine HCL [Cymbalta] 60 mg PO DAILY 02/07/24 02/09/24 History tadalafiL [Cialis] 5 mg PO 169902/07/24 02/09/24 History metFORMIN HCL ER [Glucophage XR] 500 mg PO 169902/08/24 02/09/24 History Allergies Allergy/AdvReac Type Severity Reaction Status Date / Time No Known Allergies Allergy Verified 02/09/24 06:11 Surgical - Exam Vital Signs Temp Pulse Resp BP Pulse Ox 98.2 F 104 H 16 134/67 99 02/09/24 06:14 02/09/24 06:14 02/09/24 06:14 02/09/24 06:14 02/09/24 06:14 Patient Seen Date: 02/09/24 Patient Seen Time: 07:00 - General well developed, well nourished, no distress - Eyes PERRL, normal ocular movement - ENT normal pinna, normal nares - Neck no masses - Respiratory normal expansion, normal respiratory effort - Cardiovascular Rhythm: regular - Abdomen Abdomen: soft, non tender - Integumentary no rash, no growths - Psychiatric Speech is slowed oriented to time, oriented to person, oriented to place Palpable DP pulse bilaterally Results - Labs 02/09/24 06:30 Abnormal Lab Results - Last 24 Hours (Table) 02/09/24 02/09/24 Range/Units 06:30 06:32 MCV 100.9 H (80.0-100.0) fL POC Glucose (mg/dL) 137 H (70-110) mg/dL Assessment and Plan Assessment: Carotid stenosis left ICA greater than 90% History of TIAs Hypertension Plan: To the OR for left carotid endarterectomy and patch angioplasty All questions answered and consent obtained
[2024-02-09 07:15] LABS: ALT 18 U/L (4-49); AST 19 U/L (17-59)
[2024-02-09] MEDS ORDERED: GLYCOPYRROLATE 0.2 MG/ML 2 ML VIAL ONE (07:23)
[2024-02-09] MEDS ORDERED: PHENYLEPHRINE 10 MG/ML VIAL ONE (07:23)
[2024-02-09] MEDS ORDERED: PROPOFOL 10 MG/ML 20 ML VIAL IV ONE (07:23)
[2024-02-09] MEDS ORDERED: LIDOCAINE 1% INJ 10MG/ML (20 ML MDV) ONE (07:23)
[2024-02-09] MEDS ORDERED: ROCURONIUM 10 MG/ML (5 ML VIAL) IV ONE (07:23)
[2024-02-09] MEDS ORDERED: NEOSTIGMINE 1 MG/ML 10 ML VIAL ONE (07:23)
[2024-02-09] MEDS ORDERED: HEPARIN SODIUM,PORCINE 10,000 UNIT/ML 1 ML VIAL ONE (07:23)
[2024-02-09] MEDS ORDERED: SUCCINYLCHOLINE CHLORIDE 200 MG/10 ML VIAL IV ONE (07:23)
[2024-02-09] MEDS ORDERED: fentaNYL (PF) 50 MCG/ML 2 ML AMP ONE (07:23)
--- NOTE | 2024-02-09 07:26 | P.ANPRN ---
Procedure Note - Anesthesia - Invasive Line Right Arterial Line Time Out Performed: Yes Date of Procedure: 02/09/24 Time of Procedure: 06:48 Location of Patient: PreOp Preparation: Sterile Prep, Sterile Dressing Arterial Line Location: Radial Ultrasound Used: No Purpose - Visualization and Identification of Vasculature: No Image Stored and Saved: No Narrative: Invasive line placement per sterile protocol utilized.
[2024-02-09] MEDS: THROMBIN (BOVINE) 5,000 UNIT VIAL TOPICAL ONE (08:12)
[2024-02-09] MEDS: ceFAZolin 2 GM in SODIUM CHLORIDE 0.9% 500 ML 500 ML IRRIGATION ONE (08:19)
[2024-02-09] MEDS: HEPARIN SODIUM (1,000 UNIT/ML) 2,000 UNIT in SODIUM CHLORIDE 0.9% 1,000 ML IRRIGATION ONE (08:20)
[2024-02-09] MEDS: LACTATED RINGERS 1,000 ML IV ONE (08:27)
[2024-02-09 10:22] LABS: Chol/HDL Ratio 3.18 Ratio; LDL Cholesterol,Calculated 40.6 mg/dL (0.0-131.0)
[2024-02-09] MEDS ORDERED: MAG HYDROX/AL HYDROX/SIMETH 30 ML CUP PO PRN (10:27)
[2024-02-09] MEDS ORDERED: ACETAMINOPHEN TAB 325 MG TAB PO PRN (10:27)
[2024-02-09] MEDS ORDERED: TRIMETHOBENZAMIDE 100 MG/ML 2 ML VIAL IM PRN (10:27)
--- NOTE | 2024-02-09 10:27 | P.OP ---
Description of Procedure: Date of Procedure: 02/09/2024 Preoperative Diagnosis: Left internal carotid artery stenosis greater than 90% Postoperative Diagnosis: Same Procedure(s) Performed: Left carotid endarterectomy with patch angioplasty Anesthesia: JORGEA Surgeon: Deacon Aguayo Estimated Blood Loss (ml): 20 IV Fluids: See anesthesia record Urine Output: See anesthesia record Pathology: Left carotid plaque Condition: stable Disposition: PACU Findings: Dense carotid plaque at the common carotid and internal carotid artery Indications for Procedure: 68-year-old gentleman with history of TIA, CVA with left internal carotid artery stenosis greater than 90% presents to the hospital for elective left carotid endarterectomy and patch angioplasty. Description of Procedure: After written informed consent was obtained the patient all risks benefits and competitions were described the patient is brought to the operative suite and laid in a supine position. The area of the neck was prepped and draped in usual sterile fashion after appropriate anesthetic was performed per the anesthesiologist. A timeout was performed in normal fashion antibiotics were administered prior to incision. An oblique incision was then created just anterior to the sternocleidomastoid musculature with a 10 blade scalpel and dissection was carried down to the carotid sheath. The carotid sheath was then entered after facial vein was located and suture ligated in normal fashion. The common carotid, internal carotid, external carotid and superior thyroid arteries were located and dissected free in a meticulous fashion circumferentially and controlled with vessel loops. Attention was then placed to locating the vagus nerve as well as hypoglossal nerve which were both spared. Once controlled patient was administered heparin and followed with ACTs for appropriate heparinization. Once ACT was above 200 the proximal and distal aspects of the dissection were then controlled with vascular clamps. Arteriotomy was then created with 11 blade scalpel and extended with [place] scissors. Cerebral oximetry was placed and monitored throughout the entirety of the case and did not decrease more than 5 throughout the entirety of the case. No shunt was required and endarterectomy was then performed with a Scroggins and elevator. The plaque was then feathered at the distal aspect and the internal carotid artery and removed. The area was copiously irrigated with heparinized saline and all free debris was removed. A 7-0 Prolene suture was then placed to tack the distal aspect of the dissection at the internal carotid artery. A 0.8 x 8 cm bovine pericardial patch was then chosen and patch angioplasty was performed with 6-0 Prolene suture in a running fashion. Prior to last sutures being placed the inflow was released flushing any free debris out of the patch. This was reclamped and the internal carotid artery was released revealing good brisk flow and was once again reclamped. The external carotid and superior thyroid artery were then released followed by the common carotid artery to allow any free debris to be flushed into the external system. Final sutures were placed and secured. Internal carotid artery control was then released. Good pulsatile flow was noted through the patch and a Doppler was utilized demonstrating good brisk flow into the internal, external carotid arteries without any signs of obstruction. Hemostasis was then assured with Gelf[place] and thrombin. A 10-Maori MIKEY drain was then placed in normal fashion and secured with 3-0 nylon suture. The incision was then closed in a multilayer fashion after hemostasis was assured. The skin was then cleansed and dressings were placed. Patient tolerated the procedure well and was following commands and moving all extremities. Patient was then sent to PACU for recovery.
[2024-02-09] MEDS: HYDROmorphone 0.5 MG/0.5 ML SYRINGE IVP PRN (10:32)
[2024-02-09 13:09] LABS: Glucose,Whole Blood 165 mg/dL (70-110)
[2024-02-09] MEDS: LACTATED RINGERS 1,000 ML IV SCH ×2 (13:41→13:43)
--- NOTE | 2024-02-09 13:47 | P.PN ---
Progress Note - Text Progress Note Date: 02/09/24 Notified from nursing that patient came to 3 S. cardiac stepdown unit following left carotid endarterectomy. Patient was noted to have systolic blood pressures in the upper 90s over 60s. Patient is asymptomatic he is sitting up in the bed and eating lunch. Reviewing prior blood pressures systolic pressures were in the 1 teens while he was in recovery room. Preop blood pressures 134/67 and 106/57. He denies any focal deficits, shortness of breath, chest pain, dizziness or lightheaded. Neck incision with dressing with small amount of serosanguineous drainage, no hematoma noted. Patient without any difficulty swallowing. MIKEY drain in place with serosanguineous drainage. Spoke with on-call attending Dr. Franks regarding patient exam and blood pressure, will continue to monitor on 3 S. Increase fluids to 100 mL/h. Will have Dr. Aguayo follow-up with patient as soon as he is available. Nursing to notify attending with any changes. The impression and plan of care has been dictated as directed. I performed a history and examination of this patient, discussed the same with the dictator. I agree with the dictator's note ,documented as a scribe. Any additional findings or plans will be noted.
[2024-02-09] MEDS: PSEUDOEPHEDRINE 30 MG TAB PO SCH (14:36)
[2024-02-09] MEDS: BENZOCAINE/MENTHOL LOZENG 1 EACH LOZENGE MUCOUS MEM PRN (15:42)
[2024-02-09] MEDS: NICOTINE GUM (POLACRILEX) 2 MG GUM BUCCAL PRN (15:42)
[2024-02-09] MEDS: HYDROcodone/APAP 5-325MG 1 EACH TAB PO PRN (15:42)
[2024-02-09 16:41] LABS: Glucose,Whole Blood 178 mg/dL (70-110)
[2024-02-09] MEDS: PANTOPRAZOLE 40 MG TABLET PO SCH (17:01)
[2024-02-09] MEDS: INSULIN ASPART (NovoLOG) 100 UNIT/ML VIAL SQ SCH (17:02)
--- NOTE | 2024-02-09 19:23 | P.CONS ---
History of Present Illness - History of Present Illness Patient is a pleasant 68 years old male with past medical history of multiple medical problems as below including diabetes mellitus, TIA, hypertension and hyperlipidemia Presents for left internal carotid artery stenosis status post left endarterectomy. Today is postop day #0 Patient sitting up in bed, fully awake and oriented, busy talking to his family member over the phone asking them to bring his nicotine lozenges. Patient left side surgical wound with dressing in place, rest of exam is deferred to surgery team Patient himself denies any specific complaint no headache dizziness. No chest pain or dyspnea No specific urinary or GI complaints He denies specific weakness or numbness He is afebrile Was slightly hypotensive and received IV fluid, currently blood pressure 115/69 Labs reviewed showing mild increased WBC 14.2, most likely reactive Patient states that he smokes without specification and he was counseled to quit and he agrees Patient has Lara Review of Systems Review of systems CONSTITUTIONAL: No fever, no malaise, no fatigue. HEENT: No recent visual problems or hearing problems. Denied any sore throat. CARDIOVASCULAR: No orthopnea, PND, no palpitations, no syncope. PULMONARY: No shortness of breath, no cough, no hemoptysis. GASTROINTESTINAL: No diarrhea, no nausea, no vomiting, no abdominal pain. Normoactive bowel sounds. NEUROLOGICAL: No headaches, no weakness, no numbness. HEMATOLOGICAL: Denies any bleeding or petechiae. GENITOURINARY: Denies any burning micturition, frequency, or urgency. MUSCULOSKELETAL/RHEUMATOLOGICAL: Denies any joint pain, swelling, or any muscle pain. ENDOCRINE: Denies any polyuria or polydipsia. Past Medical History Past Medical History: CVA/TIA, Diabetes Mellitus, GERD/Reflux, Hyperlipidemia, Hypertension, Musculoskeletal Disorder, Prostate Disorder Additional Past Medical History / Comment(s): hx 3 TIA's, occasional lightheadedness, takes cialis for BPH, DJD, chronic back pain, type 2 diabetes History of Any Multi-Drug Resistant Organisms: None Reported Additional Past Surgical History / Comment(s): surgery for undescended testicle, colonoscopy, left carotid endart 02/08 Past Anesthesia/Blood Transfusion Reactions: No Reported Reaction Additional Past Anesthesia/Blood Transfusion Reaction / Comm: no hx blood transfusion Smoking Status: Current every day smoker - Past Family History Mother Family Medical History: No Reported History Medications and Allergies Home Medications Medication Instructions Recorded Confirmed Type Atorvastatin [Lipitor] 20 mg PO HS 02/03/14 02/09/24 History Divalproex [Depakote] 500 mg PO HS 02/03/14 02/09/24 History Omeprazole [PriLOSEC] 20 mg PO 1700 02/03/14 02/09/24 History QUEtiapine [SEROquel] 400 mg PO HS 02/03/14 02/09/24 History lisinopriL [Prinivil] 10 mg PO QAM 02/03/14 02/09/24 History Aspirin 81 mg PO DAILY 12/03/18 02/09/24 History Temazepam [Restoril] 30 mg PO HS 12/03/18 02/09/24 History traZODone HCL 300 mg PO HS 12/03/18 02/09/24 History Ibuprofen [Motrin] 800 mg PO Q8HR PRN 12/21/22 02/09/24 History Cyclobenzaprine [Flexeril] 10 mg PO BID PRN 02/07/24 02/09/24 History DULoxetine HCL [Cymbalta] 60 mg PO DAILY 02/07/24 02/09/24 History tadalafiL [Cialis] 5 mg PO 1700 02/07/24 02/09/24 History metFORMIN HCL ER [Glucophage XR] 500 mg PO 1700 02/08/24 02/09/24 History Clopidogrel [Plavix] 75 mg PO DAILY 30 Days #30 tab 02/09/24 Rx Allergies Allergy/AdvReac Type Severity Reaction Status Date / Time No Known Allergies Allergy Verified 02/09/24 06:11 Physical Exam Vitals: Vital Signs Temp Pulse Resp BP BP Pulse Ox 02/09/24 18:08 115/69 02/09/24 16:48 100 02/09/24 15:39 97.9 F 81 18 107/70 100 02/09/24 14:37 107/71 02/09/24 13:27 91/57 02/09/24 13:09 97.5 F L 75 17 98/62 97 02/09/24 12:45 74 16 116/63 100 02/09/24 12:31 77 16 114/68 100 02/09/24 12:16 76 16 114/68 100 02/09/24 12:01 83 16 117/69 100 02/09/24 11:46 84 16 116/68 100 02/09/24 11:31 84 16 115/66 118/64 99 02/09/24 11:19 86 16 118/63 120/61 100 02/09/24 11:04 87 16 120/67 123/64 95 02/09/24 10:51 80 16 121/59 99 02/09/24 10:36 79 16 128/75 127/62 99 02/09/24 10:19 97.4 F L 104 H 18 124/69 98 02/09/24 07:01 87 15 106/57 99 02/09/24 06:14 98.2 F 104 H 16 134/67 99 Intake and Output 02/09/24 02/09/24 02/09/24 06:59 14:59 22:59 Intake Total 400 1802 118 Output Total 1025 725 Balance 400 777 -607 Intake: IV 400 1802 Oral 118 Output: Drainage 25 Left Neck 25 Urine 950 700 Estimated Blood Loss 75 Other: Voiding Method Indwelling Catheter Weight 77 kg 77 kg GENERAL: The patient is alert and oriented x3, not in any acute distress. Well developed, well nourished. HEENT: Pupils are round and equally reacting to light. EOMI. No scleral icterus. No conjunctival pallor. Normocephalic, atraumatic. No pharyngeal erythema. No thyromegaly. - left side of the neck with surgical wound with dressing in place, rest of exam is deferred to surgery team CARDIOVASCULAR: S1 and S2 present. No murmurs, rubs, or gallops. PULMONARY: Chest is clear to auscultation, no wheezing , no crackles. ABDOMEN: Soft, nontender, nondistended, normoactive bowel sounds. No palpable organomegaly. MUSCULOSKELETAL: No joint swelling or deformity. EXTREMITIES: No cyanosis, clubbing, or pedal edema. NEUROLOGICAL: Gross neurological examination did not reveal any focal deficits. SKIN: No rashes. no petechiae. Results CBC & Chem 7: 02/09/24 06:30 Labs: Abnormal Lab Results - Last 24 Hours (Table) 02/09/24 02/09/24 02/09/24 Range/Units 06:30 06:30 06:32 MCV 100.9 H (80.0-100.0) fL POC Glucose (mg/dL) 137 H (70-110) mg/dL Triglycerides 232.00 H (0.00-149.00) mg/dL VLDL Cholesterol, Calc 46.40 H (5.00-40.00) mg/dL 02/09/24 02/09/24 Range/Units 13:08 16:40 MCV (80.0-100.0) fL POC Glucose (mg/dL) 165 H 178 H (70-110) mg/dL Triglycerides (0.00-149.00) mg/dL VLDL Cholesterol, Calc (5.00-40.00) mg/dL Assessment and Plan Assessment: Left internal carotid artery stenosis (+), s/p left endarterectomy Family Diabetes mellitus Hypertension Hyperlipidemia Leukocytosis most likely reactive Nicotine dependence History of CVA/TIA Bipolar and depression, not active issue BPH Low back pain Plan: Continue with dual antiplatelet therapy per surgery team Resume his home medication Continue monitoring closely Monitor vitals and blood sugar Hold metformin for now and continue with ISS DVT prophylaxis per surgery team currently on Lovenox GI prophylaxis Protonix Prognosis is guarded
[2024-02-09 20:23] LABS: Glucose,Whole Blood 118 mg/dL (70-110)
[2024-02-09] MEDS: ATORVASTATIN 20 MG TAB PO SCH (21:28)
[2024-02-09] MEDS: TEMAZEPAM 15 MG CAP PO SCH (21:28)
[2024-02-09] MEDS: MORPHINE SULFATE 2 MG/ML SYRINGE IVP PRN (21:28)
[2024-02-09] MEDS: DIVALPROEX 500 MG TABLET.DR PO SCH (21:28)
[2024-02-09] MEDS: traZODone HCL 100 MG TAB PO SCH (21:28)
[2024-02-09] MEDS: QUEtiapine 400 MG TAB PO SCH (21:29)
[2024-02-10 06:12] LABS: Glucose,Whole Blood 113 mg/dL (70-110)
[2024-02-10] MEDS: CLOPIDOGREL 75 MG TAB PO SCH (08:45)
[2024-02-10] MEDS: DULoxetine HCL 60 MG CAPSULE.DR PO SCH (08:45)
[2024-02-10] MEDS: ASPIRIN 81 MG PO SCH (08:45)
[2024-02-10] MEDS: ENOXAPARIN 40 MG/0.4 ML SYRINGE SQ SCH (08:49)
[2024-02-10 08:53] VITALS: RESP 16
--- NOTE | 2024-02-10 10:00 | P.CRDCN ---
History of Present Illness Consult date: 02/10/24 History of present illness: This is a 68-year-old gentleman with a past medical history significant for diabetes type 2 as well as hypertension and dyslipidemia and recent diagnosis of carotid atherosclerosis documented to be critical on recent CTA of the neck was admitted to the hospital and underwent left carotid endarterectomy which was uneventful. This is postoperation day #1. The patient appears to be stable from a cardiovascular standpoint of view. No evidence of any arrhythmia in terms of sinus tachycardia or sinus bradycardia and the pressure seems to be stable with no evidence of any hypo or hypertension. He is on dual antiplatelet therapy including aspirin and Plavix. He is on low intensity statin and I am going to increase dose into high intensity statin. He reports no pain in the chest or shortness of breath or any dizziness or lightheadedness or any feeling of heart racing or fluttering. The examination is remarkable for regular rhythm with a distant heart sounds and clear breathing sounds bilaterally and no edema was noted in the lower extremities. Assessment Status post left carotid endarterectomy Multiple comorbid conditions including diabetes and hypertension and dyslipidemia Plan Agree about dual antiplatelet therapy Increase the dose of Lipitor to 80 mg p.o. nightly From the cardiovascular standpoint of view the patient can be discharged home Past Medical History Past Medical History: CVA/TIA, Diabetes Mellitus, GERD/Reflux, Hyperlipidemia, Hypertension, Musculoskeletal Disorder, Prostate Disorder Additional Past Medical History / Comment(s): hx 3 TIA's, occasional lightheadedness, takes cialis for BPH, DJD, chronic back pain, type 2 diabetes History of Any Multi-Drug Resistant Organisms: None Reported Additional Past Surgical History / Comment(s): surgery for undescended testicle, colonoscopy, left carotid endart 02/08 Past Anesthesia/Blood Transfusion Reactions: No Reported Reaction Additional Past Anesthesia/Blood Transfusion Reaction / Comment(s): no hx blood transfusion Smoking Status: Current every day smoker - Past Family History Mother Family Medical History: No Reported History Medications and Allergies Home Medications Medication Instructions Recorded Confirmed Type Atorvastatin [Lipitor] 20 mg PO HS 02/03/14 02/09/24 History Divalproex [Depakote] 500 mg PO HS 02/03/14 02/09/24 History Omeprazole [PriLOSEC] 20 mg PO 1700 02/03/14 02/09/24 History QUEtiapine [SEROquel] 400 mg PO HS 02/03/14 02/09/24 History lisinopriL [Prinivil] 10 mg PO QAM 02/03/14 02/09/24 History Aspirin 81 mg PO DAILY 12/03/18 02/09/24 History Temazepam [Restoril] 30 mg PO HS 12/03/18 02/09/24 History traZODone HCL 300 mg PO HS 12/03/18 02/09/24 History Ibuprofen [Motrin] 800 mg PO Q8HR PRN 12/21/22 02/09/24 History Cyclobenzaprine [Flexeril] 10 mg PO BID PRN 02/07/24 02/09/24 History DULoxetine HCL [Cymbalta] 60 mg PO DAILY 02/07/24 02/09/24 History tadalafiL [Cialis] 5 mg PO 1700 02/07/24 02/09/24 History metFORMIN HCL ER [Glucophage XR] 500 mg PO 1700 02/08/24 02/09/24 History Clopidogrel [Plavix] 75 mg PO DAILY 30 Days #30 tab 02/09/24 Rx Allergies Allergy/AdvReac Type Severity Reaction Status Date / Time No Known Allergies Allergy Verified 02/09/24 06:11 Physical Exam Vitals: Vital Signs Temp Pulse Resp BP BP Pulse Ox 02/10/24 08:53 97.3 F L 67 16 115/72 98 02/10/24 04:00 97.8 F 80 17 104/68 99 02/09/24 23:11 118/76 02/09/24 21:35 63 16 116/75 100 02/09/24 20:00 97.7 F 88 18 109/71 98 02/09/24 18:08 115/69 02/09/24 16:48 100 02/09/24 15:39 97.9 F 81 18 107/70 100 02/09/24 14:37 107/71 02/09/24 13:27 91/57 02/09/24 13:09 97.5 F L 75 17 98/62 97 02/09/24 12:45 74 16 116/63 100 02/09/24 12:31 77 16 114/68 100 02/09/24 12:16 76 16 114/68 100 02/09/24 12:01 83 16 117/69 100 02/09/24 11:46 84 16 116/68 100 02/09/24 11:31 84 16 115/66 118/64 99 02/09/24 11:19 86 16 118/63 120/61 100 02/09/24 11:04 87 16 120/67 123/64 95 02/09/24 10:51 80 16 121/59 99 02/09/24 10:36 79 16 128/75 127/62 99 02/09/24 10:19 97.4 F L 104 H 18 124/69 98 Intake and Output 02/09/24 02/10/24 02/10/24 22:59 06:59 14:59 Intake Total 118 118 Output Total 1050 2333 Balance -932 -2333 118 Intake: Oral 118 118 Output: Drainage 25 8 Left Neck 25 8 Urine 1025 2325 Other: Voiding Method Indwelling Catheter Indwelling Catheter Indwelling Catheter Weight 85 kg Results 02/09/24 06:30 Lipids 02/09/24 Range/Units 06:30 Triglycerides 232.00 H (0.00-149.00) mg/dL Cholesterol 127.00 (0.00-200.00) mg/dL HDL Cholesterol 40.00 (40.00-60.00) mg/dL Cholesterol/HDL Ratio 3.18 Ratio Current Medications Generic Name Dose Route Start Last Admin Trade Name Freq PRN Reason Stop Dose Admin Acetaminophen 650 mg 02/09/24 10:27 Acetaminophen Tab 325 Mg Tab PO Q4HR PRN Pain Hydrocodone Bitart/Acetaminophen 2 each 02/09/24 10:27 02/10/24 03:59 Hydrocodone/Apap 5-325mg 1 Each Tab PO 2 each Q6HR PRN Administration Pain Scale 7 to 10 Al Hydroxide/Mg Hydroxide 30 ml 02/09/24 10:27 Mag Hydrox/Al Hydrox/Simeth 30 Ml Cup PO Q6HR PRN Indigestion Aspirin 81 mg 02/10/24 09:00 02/10/24 08:45 Aspirin 81 Mg PO 81 mg DAILY FLORA Administration Atorvastatin Calcium 80 mg 02/10/24 21:00 Atorvastatin 80 Mg Tab PO HS FLORA Benzocaine/Menthol 1 each 02/09/24 10:27 02/09/24 15:42 Benzocaine/Menthol Lozeng 1 Each Lozenge MUCOUS MEM 1 each Q2HR PRN Administration Sore Throat Clopidogrel Bisulfate 75 mg 02/10/24 09:00 02/10/24 08:45 Clopidogrel 75 Mg Tab PO 75 mg DAILY FLORA Administration Divalproex Sodium 500 mg 02/09/24 21:00 02/09/24 21:28 Divalproex 500 Mg Tablet. PO 500 mg HS FLORA Administration Duloxetine HCl 60 mg 02/10/24 09:00 02/10/24 08:45 Duloxetine Hcl 60 Mg Capsule. PO 60 mg DAILY FLORA Administration Enoxaparin Sodium 40 mg 02/10/24 09:00 02/10/24 08:49 Enoxaparin 40 Mg/0.4 Ml Syringe SQ Not Given DAILY FLORA Lactated Ringer's 1,000 mls @ 100 mls/hr 02/09/24 10:30 02/10/24 09:44 Lactated Ringers IV Not Given .Q10H FLORA Insulin Aspart 0 unit 02/09/24 17:30 02/10/24 06:17 Insulin Aspart (Novolog) 100 Unit/Ml Vial SQ Not Given ACHS FLORA Protocol Lidocaine HCl 0.1 ml 02/09/24 05:55 Lidocaine 1% (10mg/Ml) For Iv Start INTRADERMA PER PROTOCOL PRN IV Start Morphine Sulfate 2 mg 02/09/24 10:27 02/10/24 08:44 Morphine Sulfate 2 Mg/Ml Syringe IVP 2 mg Q4H PRN Administration Pain Scale 6 to 7 Nicotine Polacrilex 2 mg 02/09/24 14:33 02/09/24 15:42 Nicotine Gum (Polacrilex) 2 Mg Gum BUCCAL 2 mg Q4HR PRN Administration Nicotine Cravings Pantoprazole Sodium 40 mg 02/09/24 17:00 02/09/24 17:01 Pantoprazole 40 Mg Tablet PO 40 mg 1700 FLORA Administration Pseudoephedrine HCl 60 mg 02/09/24 14:00 02/10/24 06:21 Pseudoephedrine 30 Mg Tab PO 60 mg Q6HR FLORA Administration Quetiapine Fumarate 400 mg 02/09/24 21:00 02/09/24 21:29 Quetiapine 400 Mg Tab PO 400 mg HS FLORA Administration Temazepam 30 mg 02/09/24 21:00 02/09/24 21:28 Temazepam 15 Mg Cap PO 30 mg HS FLORA Administration Trazodone HCl 300 mg 02/09/24 21:00 02/09/24 21:28 Trazodone Hcl 100 Mg Tab PO 300 mg HS FLORA Administration Trimethobenzamide HCl 200 mg 02/09/24 10:27 Trimethobenzamide 100 Mg/Ml 2 Ml Vial IM Q4HR PRN Nausea And Vomiting Intake and Output 02/09/24 02/10/24 02/10/24 22:59 06:59 14:59 Intake Total 118 118 Output Total 1050 2333 [facility] -767 -2922 118 Intake: Oral 118 118 Output: Drainage 25 8 Left Neck 25 8 Urine 1025 2325 Other: Voiding Method Indwelling Catheter Indwelling Catheter Indwelling Catheter Weight 85 kg 02/09/24 06:30
[2024-02-10 11:35] VITALS: BP 133/88; PULSE 99; TEMP 98.9
--- NOTE | 2024-02-10 11:57 | P.DS ---
Providers Date of admission: 02/09/24 05:55 Attending physician: Deacon Aguayo DO Consults: 02/09/24 10:27 Consult Physician Routine Consulting Provider: John Leyva Reason/Comments: medical management Do you want consulting provider notified?: Yes Primary care physician: John Leyva - Discharge Diagnosis(es) (1) Carotid stenosis, left Current Visit: Yes Status: Acute Hospital Course: Patient underwent a left carotid endarterectomy on 08 February. Postoperatively the patient did experience some hypotension which responded to medical care. Neurologically the patient remained intact the entire hospital stay. Procedures: Left carotid endarterectomy. Patient Condition at Discharge: Good Plan - Discharge Summary Discharge Rx Participant: No New Discharge Prescriptions: New Clopidogrel [Plavix] 75 mg PO DAILY 30 Days #30 tab No Action QUEtiapine [SEROquel] 400 mg PO HS Omeprazole [PriLOSEC] 20 mg PO 1700 Divalproex [Depakote] 500 mg PO HS Atorvastatin [Lipitor] 20 mg PO HS lisinopriL [Prinivil] 10 mg PO QAM traZODone HCL 300 mg PO HS Temazepam [Restoril] 30 mg PO HS Aspirin 81 mg PO DAILY tadalafiL [Cialis] 5 mg PO 1700 DULoxetine HCL [Cymbalta] 60 mg PO DAILY Cyclobenzaprine [Flexeril] 10 mg PO BID PRN PRN Reason: Muscle Spasm Ibuprofen [Motrin] 800 mg PO Q8HR PRN PRN Reason: Pain metFORMIN HCL ER [Glucophage XR] 500 mg PO 1700 Discharge Medication List Atorvastatin [Lipitor] 20 mg PO HS 02/03/14 [History] Divalproex [Depakote] 500 mg PO HS 02/03/14 [History] Omeprazole [PriLOSEC] 20 mg PO 1700 02/03/14 [History] QUEtiapine [SEROquel] 400 mg PO HS 02/03/14 [History] lisinopriL [Prinivil] 10 mg PO QAM 02/03/14 [History] Aspirin 81 mg PO DAILY 12/03/18 [History] Temazepam [Restoril] 30 mg PO HS 12/03/18 [History] traZODone HCL 300 mg PO HS 12/03/18 [History] Ibuprofen [Motrin] 800 mg PO Q8HR PRN 12/21/22 [History] Cyclobenzaprine [Flexeril] 10 mg PO BID PRN 02/07/24 [History] DULoxetine HCL [Cymbalta] 60 mg PO DAILY 02/07/24 [History] tadalafiL [Cialis] 5 mg PO 1700 02/07/24 [History] metFORMIN HCL ER [Glucophage XR] 500 mg PO 1700 02/08/24 [History] Clopidogrel [Plavix] 75 mg PO DAILY 30 Days #30 tab 02/09/24 [Rx] Follow up Appointment(s)/Referral(s): Deacon Aguayo DO [STAFF PHYSICIAN] - 2 Weeks (please call to schedule/verify a ppt. ) Patient Instructions/Handouts: Clopidogrel (By mouth), Carotid Endarterectomy (DC) Activity/Diet/Wound Care/Special Instructions: No strenuous activity or heavy lifting greater than 10 pounds. May shower tomorrow, but no tub bathing or soaking. Watch incision site for infection including redness, drainage, or temperature greater than 100.4. If you notice he symptoms please call office. Discharge Disposition: HOME SELF-CARE
--- NOTE | 2024-02-10 12:00 | P.PN ---
Subjective Progress Note Date: 02/10/24 Principal diagnosis: Postop day #1 status post left carotid endarterectomy. Objective - Vital Signs Vital signs: Vital Signs Temp 98.9 F 02/10/24 11:35 Pulse 99 02/10/24 11:35 Resp 16 02/10/24 11:35 BP 133/88 02/10/24 11:35 Pulse Ox 97 02/10/24 11:35 FiO2 Intake & Output 02/09/24 02/10/24 02/10/24 18:59 06:59 18:59 Intake Total 1920 118 Output Total 1750 2658 Balance 170 -2658 118 Weight 77 kg 85 kg Intake: IV 1802 Oral 118 118 Output: Drainage 25 8 Left Neck 25 8 Urine 1650 2650 Estimated Blood Loss 75 Other: Voiding Method Indwelling Catheter Indwelling Catheter Indwelling Catheter - Exam Patient is awake alert cooperative in no apparent distress. Blood pressure has returned to baseline without need for medical intervention. Cranial nerves II through XII are grossly intact. Equal motor strength is noted in the upper lower extremities bilaterally. Surgical drain is removed. Surgical wound is clean and otherwise unremarkable. The wound is redressed. - Labs CBC & Chem 7: 02/09/24 06:30 Labs: Abnormal Lab Results - Last 24 Hours (Table) 02/09/24 02/09/24 02/09/24 Range/Units 13:08 16:40 20:03 POC Glucose (mg/dL) 165 H 178 H 118 H (70-110) mg/dL 02/10/24 Range/Units 05:55 POC Glucose (mg/dL) 113 H (70-110) mg/dL Assessment and Plan Assessment: Postop day #1 status post left carotid endarterectomy, patient doing well. (1) Carotid stenosis, left Current Visit: Yes Status: Acute Code(s): I65.22 - OCCLUSION AND STENOSIS OF LEFT CAROTID ARTERY SNOMED Code(s): 417614516399590 Plan: Patient surgically stable for discharge. Discharge instructions were reviewed with the patient. Instructions: 1. May shower over wound starting tomorrow. 2: Please continue all of your current medications. 3: Please follow-up with Dr. Aguayo in 1 to 2 weeks 4: No driving automobile or operating heavy machinery until postoperative evaluation complete. Time with Patient: Less than 30
--- NOTE | 2024-02-10 18:01 | P.PN ---
Subjective Patient is a pleasant 68 years old male with past medical history of multiple medical problems as below including diabetes mellitus, TIA, hypertension and hyperlipidemia Presents for left internal carotid artery stenosis status post left endarterec pasha. Today is postop day #0 Patient sitting up in bed, fully awake and oriented, busy talking to his family member over the phone asking them to bring his nicotine lozenges. Patient left side surgical wound with dressing in place, rest of exam is deferred to surgery team Patient himself denies any specific complaint no headache dizziness. No chest pain or dyspnea No specific urinary or GI complaints He denies specific weakness or numbness He is afebrile Was slightly hypotensive and received IV fluid, currently blood pressure 115/69 Labs reviewed showing mild increased WBC 14.2, most likely reactive Patient states that he smokes without specification and he was counseled to quit and he agrees Patient has Lara 02/10/2024 Patient is clinically doing well. He wants to go home He denies any specific symptoms no chest pain dyspnea or other new complaint His blood pressure improved currently 133/88 Lisinopril was held yesterday can be resumed upon discharge Discussed with the primary team recommend patient follow-up with PCP in 1 week after discharge, patient and family at bedside were informed and they agree Patient informed that he is currently on aspirin and Plavix with risk of b leeding explained for him extensively and he verbalized understanding and acceptance Patient medically stable Objective - Vital Signs Vital signs: Vital Signs Temp 97.3 F L 02/10/24 08:53 Pulse 67 02/10/24 08:53 Resp 16 02/10/24 08:53 BP 115/72 02/10/24 08:53 Pulse Ox 98 02/10/24 08:53 FiO2 Intake & Output 02/09/24 02/10/24 02/10/24 18:59 06:59 18:59 Intake Total 1920 118 Output Total 1750 2658 Balance 170 -2658 118 Weight 77 kg 85 kg Intake: IV 1802 Oral 118 118 Output: Drainage 25 8 Left Neck 25 8 Urine 1650 2650 Estimated Blood Loss 75 Other: Voiding Method Indwelling Catheter Indwelling Catheter Indwelling Catheter - Exam GENERAL: The patient is alert and oriented x3, not in any acute distress. Well developed, well nourished. HEENT: Pupils are round and equally reacting to light. EOMI. No scleral icterus. No conjunctival pallor. Normocephalic, atraumatic. No pharyngeal erythema. No thyromegaly. - left side of the neck with surgical wound with dressing in place, rest of exam is deferred to surgery team CARDIOVASCULAR: S1 and S2 present. No murmurs, rubs, or gallops. PULMONARY: Chest is clear to auscultation, no wheezing , no crackles. ABDOMEN: Soft, nontender, nondistended, normoactive bowel sounds. No palpable organomegaly. MUSCULOSKELETAL: No joint swelling or deformity. EXTREMITIES: No cyanosis, clubbing, or pedal edema. NEUROLOGICAL: Gross neurological examination did not reveal any focal deficits. SKIN: No rashes. no petechiae. - Labs CBC & Chem 7: 02/09/24 06:30 Labs: Abnormal Lab Results - Last 24 Hours (Table) 02/09/24 02/09/24 02/09/24 Range/Units 13:08 16:40 20:03 POC Glucose (mg/dL) 165 H 178 H 118 H (70-110) mg/dL 02/10/24 Range/Units 05:55 POC Glucose (mg/dL) 113 H (70-110) mg/dL Assessment and Plan Assessment: Left internal carotid artery stenosis (+), s/p left endarterectomy Family Diabetes mellitus Hypertension Hyperlipidemia Leukocytosis most likely reactive Nicotine dependence History of CVA/TIA Bipolar and depression, not active issue BPH Low back pain Plan: Continue with dual antiplatelet therapy per surgery team Resume his home medication Continue monitoring closely Monitor vitals and blood sugar Hold metformin for now and continue with ISS Resume home medication upon discharge including lisinopril DVT prophylaxis per surgery team currently on Lovenox GI prophylaxis Protonix Patient is medically stable
[2024-02-10] MEDS ORDERED: ATORVASTATIN 80 MG TAB PO SCH (21:00)
== END 2024-02-10 12:36 | disposition home or self-care (01) | DRG 39 ==
LOC: 2ORMAIN 05:55 → 3SCARD 11:11
PROVIDERS: ADMIT Surgery; ATTEND Surgery
PROC: 03UL0KZ Supplement Left Internal Carotid Artery with Nonautologous Tissue Substitute, Open Approach (ICD-10-PCS; 2024-02-09)
PROC: 03HY32Z Insertion of Monitoring Device into Upper Artery, Percutaneous Approach (ICD-10-PCS; 2024-02-09)
PROC: 4A133B1 Monitoring of Arterial Pressure, Peripheral, Percutaneous Approach (ICD-10-PCS; 2024-02-09)
PROC: 4A133J1 Monitoring of Arterial Pulse, Peripheral, Percutaneous Approach (ICD-10-PCS; 2024-02-09)
PROC: 03CL0ZZ Extirpation of Matter from Left Internal Carotid Artery, Open Approach (ICD-10-PCS; principal; 2024-02-09 07:30)
DX: I65.22 Occlusion and stenosis of left carotid artery (principal); E78.5 Hyperlipidemia, unspecified; F17.200 Nicotine dependence, unspecified, uncomplicated; D72.829 Elevated white blood cell count, unspecified; E11.9 Type 2 diabetes mellitus without complications; F32.A Depression, unspecified; I10 Essential (primary) hypertension; N40.0 Benign prostatic hyperplasia without lower urinary tract symptoms; Z71.6 Tobacco abuse counseling; Z79.02 Long term (current) use of antithrombotics/antiplatelets; Z79.82 Long term (current) use of aspirin; Z79.84 Long term (current) use of oral hypoglycemic drugs; Z79.899 Other long term (current) drug therapy; Z82.49 Family history of ischemic heart disease and other diseases of the circulatory system; Z86.73 Personal history of transient ischemic attack (TIA), and cerebral infarction without residual deficits
CPT/HCPCS: 80061; 84450; 84460; 85025; 86850; 86900; 86901; 94760